=== PATIENT | female | born 1995 ===

== ENCOUNTER 2017-06-24 15:50 | Emergency (ER) | payer OTHER, MEDICAID ==
[2017-06-24 15:58] VITALS: BP 107/69; PULSE 88; RESP 16; TEMP 97.8; O2SAT 99; BMI 30.7
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
== END 2017-06-24 18:13 | disposition home or self-care (01) ==
LOC: C.ER 15:50
DX: S39.012A Strain of muscle, fascia and tendon of lower back, initial encounter (principal); V43.52XA Car driver injured in collision with other type car in traffic accident, initial encounter
CPT/HCPCS: 96372; 99284; J1885